=== PATIENT | male | born 1970 | race African-American/Black ===

== ENCOUNTER 2016-06-19 01:12 | Emergency (ER) | payer MEDICAID ==
[~2016-06-19] VITALS: Ht 185.4 cm; Wt 72.0 kg
[~2016-06-19 01:12] MED LIST: BUPR-197 PO; LORA1TAB PO
[2016-06-19 01:15] VITALS: BP 128/73; PULSE 85; RESP 17; TEMP 98.2; O2SAT 93
[2016-06-19 01:21] VITALS: RESP 21; O2SAT 96
[2016-06-19] MEDS ORDERED: SODIUM CHLORIDE 0.9% FLUSH 10 ML FLUSH IVF PRN (01:30)
[2016-06-19] MEDS ORDERED: IBUPROFEN 800 MG TAB PO ONE (01:30)
--- NOTE | 2016-06-19 01:30 | PD ---
HPI Chief Complaint: Chest Pain Time Seen by Provider: 01:19 Travel History International Travel<30 days: No Contact w/Intl Traveler<30days: No Traveled to known affect area: No History of Present Illness HPI Patient is a 46-year-old male presents emergency department with complaint of chest pain. Patient states that he was at home approximately 30 minutes arrival when he developed a sharp right sided chest pain. This is reproducible and made worse with movement. Patient denies any associated shortness of breath , nausea, diaphoresis or lightheadedness. Patient does not have any history of cardiac disease, PE or risk factors. EMS arrived, hemodynamically stable with normal twelve-lead en route. PFSH Past Medical History Bipolar Disorder: Yes Anxiety: Yes Depression: Yes Congestive Heart Failure: Yes Diminished Hearing: No Psychiatric: Yes (PSYCHOSIS) Tetanus Vaccination: < 5 Years Past Surgical History Surgical History: No Previous Surgery Social History Alcohol Use: Yes (3-4 TIMES PER WEEK) Tobacco Use: Yes (2 PPD) Substance Use: No (THC OCCASIONALLY) Allergies-Medications (Allergen,Severity, Reaction): Coded Allergies: Compazine (Verified Allergy, Severe, 06/19/16) Toradol (Verified Allergy, Severe, 06/19/16) Zofran (Verified Allergy, Severe, 06/19/16) Flexeril (Verified Allergy, Unknown, HIVES, 06/19/16) Tramadol (Verified Allergy, Unknown, HIVES, 06/19/16) Reported Meds & Prescriptions Reported Meds & Active Scripts Active No Active Prescriptions or Reported Medications Review of Systems Except as stated in HPI: all other systems reviewed are Neg Physical Exam Narrative GENERAL: Well-appearing male in no acute distress SKIN: Focused skin assessment warm/dry. HEAD: Normocephalic. EYES: No scleral icterus. No injection or drainage. ENT: No nasal bleeding or discharge. Mucous membranes pink and moist. NECK: Supple CARDIOVASCULAR: Regular rate and rhythm. No murmur appreciated. Reproducible point tenderness to palpation of the right chest wall RESPIRATORY: No accessory muscle use. Clear to auscultation. Breath sounds equal bilaterally. GASTROINTESTINAL: Abdomen soft, non-tender, nondistended. MUSCULOSKELETAL: No obvious deformities No edema. NEUROLOGICAL: Awake and alert. Normal speech. PSYCHIATRIC: Appropriate mood and affect; insight and judgment normal. Data Data Last Documented VS Vital Signs Date Time Temp Pulse Resp B/P Pulse Ox O2 Delivery O2 Flow Rate FiO2 06/19/16 01:21 21 96 Room Air 06/19/16 01:15 98.2 85 128/73 Orders Complete Blood Count With Diff (06/19/16 01:19) Basic Metabolic Panel (Bmp) (06/19/16 01:19) D-Dimer (06/19/16 01:19) Troponin I (06/19/16 01:19) Iv Access Insert/Monitor (06/19/16 01:19) Electrocardiogram (06/19/16 01:19) Ecg Monitoring (06/19/16 01:19) Oximetry (06/19/16 01:19) Sodium Chloride 0.9% Flush (Ns Flush) (06/19/16 01:30) Ibuprofen (Motrin) (06/19/16 01:30) Ct Pulmonary Angiogram (06/19/16 02:19) Iohexol 350 Inj (Omnipaque 350 Inj) (06/19/16 02:38) Labs Laboratory Tests Test 06/19/16 01:25 White Blood Count 8.9 TH/MM3 Red Blood Count 4.74 MIL/MM3 Hemoglobin 14.9 GM/DL Hematocrit 43.6 % Mean Corpuscular Volume 92.1 FL Mean Corpuscular Hemoglobin 31.4 PG Mean Corpuscular Hemoglobin 34.1 % Concent Red Cell Distribution Width 13.5 % Platelet Count 201 TH/MM3 Mean Platelet Volume 9.4 FL Neutrophils (%) (Auto) 62.9 % Lymphocytes (%) (Auto) 25.9 % Monocytes (%) (Auto) 9.0 % Eosinophils (%) (Auto) 1.4 % Basophils (%) (Auto) 0.8 % Neutrophils # (Auto) 5.6 TH/MM3 Lymphocytes # (Auto) 2.3 TH/MM3 Monocytes # (Auto) 0.8 TH/MM3 Eosinophils # (Auto) 0.1 TH/MM3 Basophils # (Auto) 0.1 TH/MM3 CBC Comment DIFF FINAL Differential Comment D-Dimer Quantitative (PE/DVT) 0.60 MG/L FEU Sodium Level 139 MEQ/L Potassium Level 3.7 MEQ/L Chloride Level 103 MEQ/L Carbon Dioxide Level 26.2 MEQ/L Anion Gap 10 MEQ/L Blood Urea Nitrogen 9 MG/DL Creatinine 0.84 MG/DL Estimat Glomerular Filtration 120 ML/MIN Rate Random Glucose 88 MG/DL Calcium Level 9.0 MG/DL Troponin I LESS THAN 0.02 NG/ML MDM Medical Decision Making Medical Screen Exam Complete: Yes Emergency Medical Condition: Yes Medical Record Reviewed: Yes Differential Diagnosis 46-year-old male here with complaint of chest pain. Exam shows reproducible point tenderness to palpation of the right chest wall. He describes the symptoms as sharp. Suspicion that these are musculoskeletal in etiology. Less likely PE, ACS. Narrative Course Patient placed on monitor, IV established and blood obtained. Twelve-lead EKG shows sinus rhythm without notable ST abnormalities, normal intervals. Patient given ibuprofen for pain. CBC, BMP, d-dimer, troponin notable for slightly elevated d-dimer and therefore CT pulmonary angiogram was obtained. No evidence of PE. Mild groundglass attenuation left lower lobe, nonspecific. Patient doesn't have any infectious symptomatology and this is on the contralateral side of his pain. Emphysema with stable pulmonary nodules. Patient was reassured, discharged home with musculoskeletal etiology. Diagnosis Primary Impression: Chest wall pain Referrals: Primary Care Physician as needed Patient Instructions: Chest Wall Pain (ED), General Instructions Additional Instructions: Tylenol, ibuprofen as needed for chest wall pain. EKG blood work and CAT scan today were unremarkable. Med/Other Pt SpecificInfo: No Change to Meds Scripts No Active Prescriptions or Reported Meds Disposition: DISCHARGE HOME Condition: Stable Lisa Manrique MD Jun 19, 2016 01:30
[2016-06-19 01:49] LABS: AUTOMATED NEUTROPHIL # 5.6 TH/MM3 (1.8-7.7); BASOPHIL # 0.1 TH/MM3 (0-0.2); BASOPHIL % 0.8 % (0.0-2.0); EOSINOPHIL # 0.1 TH/MM3 (0-0.4); EOSINOPHIL % 1.4 % (0.0-4.0); HEMATOCRIT 43.6 % (39.0-51.0); HEMO FLAGS DIFF FINAL; LYMPH % 25.9 % (9.0-44.0); LYMPHOCYTE # 2.3 TH/MM3 (1.0-4.8); MEAN CELL VOLUME 92.1 FL (80.0-100.0); MEAN CORPUSCULAR HEMOGLOBIN 31.4 PG (27.0-34.0); MEAN CORPUSCULAR HGB CONC 34.1 % (32.0-36.0); NEUT % 62.9 % (16.0-70.0); PLATELET COUNT 201 TH/MM3 (150-450); RED BLOOD COUNT 4.74 MIL/MM3 (4.50-5.90); RED CELL DISTRIBUTION WIDTH 13.5 % (11.6-17.2); WHITE BLOOD COUNT 8.9 TH/MM3 (4.0-11.0)
[2016-06-19 02:20] LABS: ANION GAP 10 MEQ/L (5-15); BICARBONATE 26.2 MEQ/L (21.0-32.0); BLOOD UREA NITROGEN 9 MG/DL (7-18); CHLORIDE 103 MEQ/L (98-107); GLOMERULAR FILTRATION RATE 120 ML/MIN (>89); POTASSIUM 3.7 MEQ/L (3.5-5.1); SODIUM (NA) 139 MEQ/L (136-145)
[2016-06-19] MEDS ORDERED: IOHEXOL 350 MG/ML 10 ML VIAL (for RAD DIAG) IV ONE (02:38)
--- NOTE | 2016-06-19 03:01 | RADRPT ---
EXAM DATE/TIME: 06/19/2016 02:28 [facility] COMPARISON: CT THORAX W/O CONTRAST, June 26, 2009, 13:15. INDICATIONS : Medial chest pain. IV CONTRAST: 85 cc Omnipaque 350 (iohexol) IV RADIATION DOSE: 6.79 CTDIvol (mGy) MEDICAL HISTORY : Congestive heart failure. SURGICAL HISTORY : None. ENCOUNTER: Initial ACUITY: 1 day PAIN SCALE: 8/10 LOCATION: chest TECHNIQUE: Volumetric scanning of the chest was performed using a pulmonary embolism protocol MIP images were re constructed. Using automated exposure control and adjustment of the mA and/or kV according to patien t size, radiation dose was kept as low as reasonably achievable to obtain optimal diagnostic quality images. FINDINGS: PULMONARY ARTERIES: No filling defects are seen in the pulmonary arteries through the segmental level. LUNGS: There is no consolidation or pneumothorax . There is a stable 6 mm left lower lobe and 4 mm left uppe r lobe noncalcified pulmonary nodule. Mild dependent atelectasis is present bilaterally and there is mild groundglass attenuation in the left lower lobe. Paraseptal emphysema is present in both upper lo bes. PLEURAE: There is no pleural thickening or pleural effusion. MEDIASTINUM: There is good visualization of the great vessels of the middle mediastinum. No evidence of mediastin al or hilar adenopathy/mass. MUSCULOSKELETAL: No acute osseous abnormality is identified. MISCELLANEOUS: The visualized upper abdominal organs demonstrate no acute abnormality. CONCLUSION: 1. No PE is identified. 2. Mild groundglass attenuation in the left lower lobe. Although nonspecific this could represent an infectious or inflammatory process. 3. There is paraseptal emphysema with stable left upper lobe and left lower lobe pulmonary nodules. T he stability since 2009 is consistent with a benign process. Krishna Freitas MD on June 19, 2016 at 2:55 Board Certified Radiologist. This report was verified electronically.
[2016-06-19 03:43] VITALS: BP 128/78; PULSE 82; RESP 22; O2SAT 98
--- NOTE | 2016-06-19 21:00 | EKG ---
Date Performed: 06/19/2016 Time Performed: 01:24:43 PTAGE: 46 years EKG: Sinus rhythm NORMAL ECG PREVIOUS TRACING : 04/06/2015 21.57 DOCTOR: Susana Schultz Interpretating Date/Time 06/19/2016 20:59:54
== END 2016-06-19 03:44 | disposition home or self-care (01) ==
LOC: NEPE 01:12
DX: R07.89 Other chest pain (principal); I50.9 Heart failure, unspecified
CPT/HCPCS: 71275; 80048; 84484; 85025; 85379; 93005; 99285; Q9967

== ENCOUNTER 2016-07-03 04:08 | Emergency (ER) | payer MEDICAID ==
[~2016-07-03] VITALS: Ht 185.4 cm; Wt 87.0 kg
[2016-07-03 04:14] VITALS: BP 107/51; PULSE 84; RESP 18; TEMP 97.8
[2016-07-03] MEDS ORDERED: LORA1TAB12 PO (04:21)
[2016-07-03] MEDS ORDERED: LAMO100 PO (04:21)
[2016-07-03] MEDS ORDERED: TRAZ100T4 PO (04:21)
--- NOTE | 2016-07-03 04:27 | PD ---
HPI Chief Complaint: Chest Pain Time Seen by Provider: 04:17 Travel History International Travel<30 days: No Contact w/Intl Traveler<30days: No Traveled to known affect area: No History of Present Illness HPI 46-year-old male here for evaluation of chest pain. The patient reports that he was seen in the emergency department about 2 weeks ago for the same, and he has been having chest pain ever since. The pain worsened this evening. He describes the pain as sharp, gross from his right side of his chest to his left side of his chest. Pain can be slightly worse with movement and inspiration. He denies dyspnea. No history of cardiac disease. Chart review shows that the patient was here on June 19 and had a full workup in the emergency department including negative set of cardiac enzymes as well as a negative CT pulmonary angiogram. Pain was thought to be musculoskeletal. Patient denies fevers, chills, cough, recent illness. No paresthesias or motor deficits. He admits to drinking alcohol daily including beer and moonshine as well as smoking cigarettes daily. He denies crack or cocaine use. PFSH Past Medical History Bipolar Disorder: Yes Anxiety: Yes Depression: Yes Congestive Heart Failure: Yes Diminished Hearing: No Psychiatric: Yes (PSYCHOSIS) Past Surgical History Surgical History: No Previous Surgery Social History Alcohol Use: Yes (3-4 TIMES PER WEEK) Tobacco Use: Yes (2 PPD) Substance Use: No (THC OCCASIONALLY) Allergies-Medications (Allergen,Severity, Reaction): Coded Allergies: Compazine (Verified Allergy, Severe, 06/19/16) Toradol (Verified Allergy, Severe, 06/19/16) Zofran (Verified Allergy, Severe, 06/19/16) Flexeril (Verified Allergy, Unknown, HIVES, 06/19/16) Tramadol (Verified Allergy, Unknown, HIVES, 06/19/16) Reported Meds & Prescriptions Reported Meds & Active Scripts Active Reported Lorazepam 1 Mg Tab 1 Mg PO DAILY PRN Lamictal (Lamotrigine) 100 Mg Tab 100 Mg PO BID Trazodone (Trazodone HCl) 100 Mg Tab 100 Mg PO HS Review of Systems Except as stated in HPI: all other systems reviewed are Neg Physical Exam Narrative GENERAL: Well-developed, well-nourished, comfortable, no acute distress. SKIN: Focused skin assessment warm/dry. HEAD: Atraumatic. Normocephalic. EYES: Pupils equal and round. No scleral icterus. No injection or drainage. ENT: No nasal bleeding or discharge. Mucous membranes pink and moist. NECK: Trachea midline. No JVD. CARDIOVASCULAR: Regular rate and rhythm. Distal pulses brisk and equal bilaterally. RESPIRATORY: No accessory muscle use. Clear to auscultation. Breath sounds equal bilaterally. GASTROINTESTINAL: Abdomen soft, non-tender, nondistended. MUSCULOSKELETAL: No obvious deformities. No clubbing. No cyanosis. No edema. NEUROLOGICAL: Awake and alert. No obvious cranial nerve deficits. Motor grossly within normal limits. Normal speech. PSYCHIATRIC: Appropriate mood and affect; insight and judgment normal. Data Data Last Documented VS Vital Signs Date Time Temp Pulse Resp B/P Pulse Ox O2 Delivery O2 Flow Rate FiO2 07/03/16 04:30 18 97 Room Air 07/03/16 04:14 97.8 84 107/51 Orders Electrocardiogram (07/03/16 04:23) Basic Metabolic Panel (Bmp) (07/03/16 04:23) Ckmb (Isoenzyme) Profile (07/03/16 04:23) Complete Blood Count With Diff (07/03/16 04:23) Magnesium (Mg) (07/03/16 04:23) Prothrombin Time / Inr (Pt) (07/03/16 04:23) Act Partial Throm Time (Ptt) (07/03/16 04:23) Troponin I (07/03/16 04:23) Chest, Single Ap (07/03/16 04:23) Ecg Monitoring (07/03/16 04:23) Iv Access Insert/Monitor (07/03/16 04:23) Oximetry (07/03/16 04:23) Sodium Chloride 0.9% Flush (Ns Flush) (07/03/16 04:30) Alcohol (Ethanol) (07/03/16 04:23) Tramadol (Ultram) (07/03/16 04:30) Sodium Chlor 0.9% 1000 Ml Inj (Ns 1000 M (07/03/16 04:30) CKMB (07/03/16 04:25) CKMB% (07/03/16 04:25) Troponin I (07/03/16 07:00) Labs Laboratory Tests Test 07/03/16 04:25 White Blood Count 6.8 TH/MM3 Red Blood Count 4.50 MIL/MM3 Hemoglobin 14.5 GM/DL Hematocrit 41.6 % Mean Corpuscular Volume 92.3 FL Mean Corpuscular Hemoglobin 32.2 PG Mean Corpuscular Hemoglobin 34.8 % Concent Red Cell Distribution Width 13.3 % Platelet Count 203 TH/MM3 Mean Platelet Volume 9.8 FL Neutrophils (%) (Auto) 62.0 % Lymphocytes (%) (Auto) 27.1 % Monocytes (%) (Auto) 9.4 % Eosinophils (%) (Auto) 0.9 % Basophils (%) (Auto) 0.6 % Neutrophils # (Auto) 4.2 TH/MM3 Lymphocytes # (Auto) 1.9 TH/MM3 Monocytes # (Auto) 0.6 TH/MM3 Eosinophils # (Auto) 0.1 TH/MM3 Basophils # (Auto) 0.0 TH/MM3 CBC Comment DIFF FINAL Differential Comment Prothrombin Time 10.1 SEC Prothromb Time International 0.9 RATIO Ratio Activated Partial 28.5 SEC Thromboplast Time Sodium Level 141 MEQ/L Potassium Level 3.7 MEQ/L Chloride Level 106 MEQ/L Carbon Dioxide Level 24.9 MEQ/L Anion Gap 10 MEQ/L Blood Urea Nitrogen 7 MG/DL Creatinine 0.84 MG/DL Estimat Glomerular Filtration 120 ML/MIN Rate Random Glucose 91 MG/DL Calcium Level 8.9 MG/DL Magnesium Level 2.0 MG/DL Total Creatine Kinase 193 U/L Creatine Kinase MB 2.3 NG/ML Troponin I LESS THAN 0.02 NG/ML Ethyl Alcohol Level 220 MG/DL [facility] [place] Medical Decision Making Medical Screen Exam Complete: Yes Emergency Medical Condition: Yes Medical Record Reviewed: Yes Interpretation(s) EKG: Sinus, rate 86, normal axis, normal intervals, no acute ischemic abnormality. Differential Diagnosis ACS, pneumothorax, pericarditis, PE, pneumonia, musculoskeletal pain Narrative Course Vital signs show heart rate 84, blood pressure 107/51, pulse ox 97% on room air , oral temp of 97.8F. CBC is unremarkable. BMP is unremarkable. Cardiac enzymes are negative. Alcohol level is 220. Chest x-ray: No acute cardiopulmonary disease. Patient's cardiac enzymes will be repeated 3 hours after the first set. At approximately 7:00 AM at the end of my shift the patient was signed out to Dr. Manrique who will follow-up with a delta troponin and will disposition the patient. If repeat troponin is negative, the patient can be discharged home with outpatient follow-up. Marcell Baeza MD Jul 03, 2016 04:27
[2016-07-03 04:30] VITALS: RESP 18; O2SAT 97
[2016-07-03] MEDS ORDERED: SODIUM CHLORIDE 0.9% FLUSH 10 ML FLUSH IVF PRN (04:30)
[2016-07-03] MEDS ORDERED: SODIUM CHLOR 0.9% 1000 ML INJ 1,000 ML IV ONE (04:30)
[2016-07-03] MEDS ORDERED: traMADol HCL 50 MG TAB PO ONE (04:30)
[2016-07-03 04:54] LABS: AUTOMATED NEUTROPHIL # 4.2 TH/MM3 (1.8-7.7); BASOPHIL % 0.6 % (0.0-2.0); EOSINOPHIL # 0.1 TH/MM3 (0-0.4); EOSINOPHIL % 0.9 % (0.0-4.0); HEMATOCRIT 41.6 % (39.0-51.0); HEMO FLAGS DIFF FINAL; LYMPH % 27.1 % (9.0-44.0); LYMPHOCYTE # 1.9 TH/MM3 (1.0-4.8); MEAN CELL VOLUME 92.3 FL (80.0-100.0); MEAN CORPUSCULAR HEMOGLOBIN 32.2 PG (27.0-34.0); MEAN CORPUSCULAR HGB CONC 34.8 % (32.0-36.0); MONO % 9.4 % (0.0-8.0); PLATELET COUNT 203 TH/MM3 (150-450); RED CELL DISTRIBUTION WIDTH 13.3 % (11.6-17.2); WHITE BLOOD COUNT 6.8 TH/MM3 (4.0-11.0)
[2016-07-03 05:04] LABS: APTT (PATIENT) 28.5 SEC (24.3-30.1); INTERNATIONAL NORMALIZED RATIO 0.9 RATIO; PROTHROMBIN TIME - PATIENT 10.1 SEC (9.8-11.6)
[2016-07-03 05:05] LABS: ANION GAP 10 MEQ/L (5-15); BICARBONATE 24.9 MEQ/L (21.0-32.0); BLOOD UREA NITROGEN 7 MG/DL (7-18); CHLORIDE 106 MEQ/L (98-107); GLOMERULAR FILTRATION RATE 120 ML/MIN (>89); POTASSIUM 3.7 MEQ/L (3.5-5.1); SODIUM (NA) 141 MEQ/L (136-145)
[2016-07-03 05:09] LABS: CREATINE KINASE 193 U/L (39-308)
[2016-07-03 05:28] LABS: CKMB 2.3 NG/ML (0.5-3.6)
--- NOTE | 2016-07-03 06:21 | RADRPT ---
EXAM DATE/TIME: 07/03/2016 04:48 [facility] COMPARISON: CHEST SINGLE AP, April 06, 2015, 22:11. INDICATIONS : Chest pain for the last 2 weeks. MEDICAL HISTORY : None. SURGICAL HISTORY : None. ENCOUNTER: [facility] ACUITY: 2 weeks PAIN SCORE: 6/10 LOCATION: Bilateral chest FINDINGS: A single view of the chest demonstrates the lungs to be symmetrically aerated without evidence of mas s, infiltrate or effusion. The cardiomediastinal contours are unremarkable. Osseous structures are intact. CONCLUSION: 1. No acute cardiopulmonary disease. Zac Dolan MD on July 03, 2016 at 6:20 Board Certified Radiologist. This report was verified electronically.
[2016-07-03 07:10] VITALS: BP 122/74; PULSE 74; RESP 16; O2SAT 97
--- NOTE | 2016-07-03 07:51 | PD ---
Data Data Last Documented VS Vital Signs Date Time Temp Pulse Resp B/P Pulse Ox O2 Delivery O2 Flow Rate FiO2 07/03/16 07:10 74 16 122/74 97 Room Air 07/03/16 04:14 97.8 Orders Electrocardiogram (07/03/16 04:23) Basic Metabolic Panel (Bmp) (07/03/16 04:23) Ckmb (Isoenzyme) Profile (07/03/16 04:23) Complete Blood Count With Diff (07/03/16 04:23) Magnesium (Mg) (07/03/16 04:23) Prothrombin Time / Inr (Pt) (07/03/16 04:23) Act Partial Throm Time (Ptt) (07/03/16 04:23) Troponin I (07/03/16 04:23) Chest, Single Ap (07/03/16 04:23) Ecg Monitoring (07/03/16 04:23) Iv Access Insert/Monitor (07/03/16 04:23) Oximetry (07/03/16 04:23) Sodium Chloride 0.9% Flush (Ns Flush) (07/03/16 04:30) Alcohol (Ethanol) (07/03/16 04:23) Tramadol (Ultram) (07/03/16 04:30) Sodium Chlor 0.9% 1000 Ml Inj (Ns 1000 M (07/03/16 04:30) CKMB (07/03/16 04:25) CKMB% (07/03/16 04:25) Troponin I (07/03/16 07:00) Labs Laboratory Tests Test 07/03/16 07/03/16 04:25 07:10 White Blood Count 6.8 TH/MM3 Red Blood Count 4.50 MIL/MM3 Hemoglobin 14.5 GM/DL Hematocrit 41.6 % Mean Corpuscular Volume 92.3 FL Mean Corpuscular Hemoglobin 32.2 PG Mean Corpuscular Hemoglobin 34.8 % Concent Red Cell Distribution Width 13.3 % Platelet Count 203 TH/MM3 Mean Platelet Volume 9.8 FL Neutrophils (%) (Auto) 62.0 % Lymphocytes (%) (Auto) 27.1 % Monocytes (%) (Auto) 9.4 % Eosinophils (%) (Auto) 0.9 % Basophils (%) (Auto) 0.6 % Neutrophils # (Auto) 4.2 TH/MM3 Lymphocytes # (Auto) 1.9 TH/MM3 Monocytes # (Auto) 0.6 TH/MM3 Eosinophils # (Auto) 0.1 TH/MM3 Basophils # (Auto) 0.0 TH/MM3 CBC Comment DIFF FINAL Differential Comment Prothrombin Time 10.1 SEC Prothromb Time International 0.9 RATIO Ratio Activated Partial 28.5 SEC Thromboplast Time Sodium Level 141 MEQ/L Potassium Level 3.7 MEQ/L Chloride Level 106 MEQ/L Carbon Dioxide Level 24.9 MEQ/L Anion Gap 10 MEQ/L Blood Urea Nitrogen 7 MG/DL Creatinine 0.84 MG/DL Estimat Glomerular Filtration 120 ML/MIN Rate Random Glucose 91 MG/DL Calcium Level 8.9 MG/DL Magnesium Level 2.0 MG/DL Total Creatine Kinase 193 U/L Creatine Kinase MB 2.3 NG/ML Troponin I LESS THAN 0.02 LESS THAN 0.02 NG/ML NG/ML Ethyl Alcohol Level 220 MG/DL MDM Supervised Visit with SANJAY: No Narrative Course Patient signed out to me by previous provider. Please see associated no for further details. Patient is a 46-year-old male here with complaint of chest pain, seen here in the emergency department 2 weeks ago, actually by myself, for chest pain which has never since resolved but worsened slightly this evening. He continues to describe it is sharp, primarily right sided. Worse with inspiration. On his previous visit he had a CT pulmonary angiogram that was negative for PE, pain was felt to be musculoskeletal. Patient admits to drinking alcohol daily including beer, moonshine and smokes cigarettes daily. Initial twelve-lead EKG , cardiac enzymes were negative and patient signed out to me pending repeat troponin. Previous provider felt as though symptoms were atypical, likely musculoskeletal and if repeat troponin negative okay to discharge to home. Repeat troponin remains undetectable. Patient was reassured and instructed to use anti-inflammatories for chest wall pain. Patient inebriated with blood alcohol and the 200s and was encouraged to cut back on his alcohol abuse. Diagnosis Primary Impression: Atypical chest pain Additional Impression: Alcohol abuse Referrals: Primary Care Physician call for appointment [facility] for appointment Patient Instructions: General Instructions, Noncardiac Chest Pain (ED) Additional Instruction: Follow-up with your primary care provider if symptoms persist. Tylenol, ibuprofen as needed for pain. I encourage you to cut back on your drinking and seek outpatient counseling and treatment for your alcohol abuse. Med/Other Pt SpecificInfo: No Change to Meds Disposition: 01 DISCHARGE HOME Condition: Stable Lisa Manrique MD Jul 03, 2016 07:51
[2016-07-03 09:00] VITALS: BP 113/74; PULSE 84; RESP 14; O2SAT 98
--- NOTE | 2016-07-03 16:04 | EKG ---
Date Performed: 07/03/2016 Time Performed: 04:15:43 PTAGE: 46 years EKG: Sinus rhythm When compared to previous tracing, no significant change. NORMAL ECG PREVIOUS TRACING : 06/19/2016 01.24 DOCTOR: Yasir Wilkinson Interpretating Date/Time 07/03/2016 16:02:50
== END 2016-07-03 09:04 | disposition home or self-care (01) ==
LOC: NEPE 04:08
DX: R07.89 Other chest pain (principal); F10.10 Alcohol abuse, uncomplicated; Y90.7 Blood alcohol level of 200-239 mg/100 ml; I50.9 Heart failure, unspecified; F17.210 Nicotine dependence, cigarettes, uncomplicated
CPT/HCPCS: 71010; 80048; 80307; 82550; 82552; 83735; 84484; 85025; 85610; 85730; 93005; 96360; 99285; J7030

== ENCOUNTER 2017-02-15 14:39 | Emergency (ER) | payer MEDICAID ==
[~2017-02-15] VITALS: Ht 185.4 cm; Wt 74.0 kg
[~2017-02-15 14:39] MED LIST changes: -BUPR-197 PO; +LAMO100 PO; -LORA1TAB PO; +LORA1TAB12 PO; +TRAZ100T4 PO
[2017-02-15 15:04] VITALS: BP 109/59; PULSE 59; RESP 16; TEMP 98.5; O2SAT 100
--- NOTE | 2017-02-15 15:21 | PD ---
Physical Exam Time Seen by Provider: 15:19 Narrative PT WAS WALKING WHEN HE BECAME DIZZY AND FELL DID NOT STRIKE HEAD; NO LOC REPORTS MID BACK PAIN; FEELS WEAK Data Data Last Documented VS Vital Signs Date Time Temp Pulse Resp B/P (MAP) Pulse Ox O2 Delivery O2 Flow Rate FiO2 02/15/17 15:04 98.5 59 16 109/59 (76) 100 Room Air MDM Medical Record Reviewed: Yes Supervised Visit with SANJAY: No Narrative Course WORK UP INITIATED IN TRIAGE PT APPEARS WITHOUT DISTRESS Condition: Stable Claudette Collazo Feb 15, 2017 15:21
[2017-02-15] MEDS ORDERED: TRAZ100T10 PO (16:14)
[2017-02-15] MEDS ORDERED: LITH300C2 PO (16:14)
[2017-02-15 16:22] LABS: AUTOMATED NEUTROPHIL # 4.9 TH/MM3 (1.8-7.7); BASOPHIL % 0.3 % (0.0-2.0); EOSINOPHIL # 0.1 TH/MM3 (0-0.4); HEMATOCRIT 47.3 % (39.0-51.0); HEMO FLAGS DIFF FINAL; LYMPH % 24.1 % (9.0-44.0); LYMPHOCYTE # 1.8 TH/MM3 (1.0-4.8); MEAN CELL VOLUME 96.5 FL (80.0-100.0); MEAN CORPUSCULAR HEMOGLOBIN 31.8 PG (27.0-34.0); MEAN CORPUSCULAR HGB CONC 32.9 % (32.0-36.0); MONO % 9.3 % (0.0-8.0); NEUT % 65.3 % (16.0-70.0); PLATELET COUNT 204 TH/MM3 (150-450); RED CELL DISTRIBUTION WIDTH 13.5 % (11.6-17.2); WHITE BLOOD COUNT 7.6 TH/MM3 (4.0-11.0)
[2017-02-15 16:36] LABS: BICARBONATE 26.4 MEQ/L (21.0-32.0)
[2017-02-15 16:37] LABS: APTT (PATIENT) 30.2 SEC (24.3-30.1); PROTHROMBIN TIME - PATIENT 10.9 SEC (9.8-11.6)
--- NOTE | 2017-02-15 16:39 | PD ---
HPI Chief Complaint: Back/ Neck Pain or Injury Time Seen by Provider: 16:25 Travel History International Travel<30 days: No Contact w/Intl Traveler<30days: No Traveled to known affect area: No History of Present Illness HPI 46-year-old male patient presents to the ER today because he states that he had been walking and had started getting dizzy, fell hitting his back. He denies any head injury, loss of consciousness, chest pains, shortness of breath, or any other issues. He denies any other injuries. Pain is currently rated 8 out of 10. Worse with laying down on the area. Modifying Factors: Worse with laying down on the area Associated Signs & Symptoms: Dizziness, Fall, back injury Risk Factors: None PFSH Past Medical History Bipolar Disorder: Yes Anxiety: Yes Depression: Yes Congestive Heart Failure: Yes Diminished Hearing: No Psychiatric: Yes (PSYCHOSIS) Tetanus Vaccination: < 5 Years Influenza Vaccination: No Past Surgical History Surgical History: No Previous Surgery Social History Alcohol Use: Yes (3-4 TIMES PER WEEK) Tobacco Use: Yes (2 PPD) Substance Use: No (THC OCCASIONALLY) Allergies-Medications (Allergen,Severity, Reaction): Coded Allergies: ketorolac (Unverified Allergy, Severe, 02/15/17) ondansetron (Unverified Allergy, Severe, 02/15/17) prochlorperazine (Unverified Allergy, Severe, 02/15/17) cyclobenzaprine (Unverified Allergy, Unknown, HIVES, 02/15/17) tramadol (Unverified Allergy, Unknown, HIVES, 02/15/17) Reported Meds & Prescriptions Reported Meds & Active Scripts Active Reported [place] Carbonate 300 Mg Cap 300 Mg PO BID Trazodone (Trazodone HCl) 100 Mg Tablet 100 Mg PO HS Review of Systems Except as stated in HPI: all other systems reviewed are Neg Physical Exam Narrative GENERAL: Well-developed middle age after [place] male patient currently in no acute distress. Awake and oriented 3. SKIN: Focused skin assessment warm/dry. HEAD: Atraumatic. Normocephalic. EYES: Pupils equal and round. No scleral icterus. No injection or drainage. ENT: No nasal bleeding or discharge. Mucous membranes pink and moist. NECK: Trachea midline. No JVD. CARDIOVASCULAR: Regular rate and rhythm. No murmur appreciated. RESPIRATORY: No accessory muscle use. Clear to auscultation. Breath sounds equal bilaterally. GASTROINTESTINAL: Abdomen soft, non-tender, nondistended. Hepatic and splenic margins not palpable. BACK: No CVA tenderness. No rash. There is tenderness to palpation of the T12- L1 area. No obvious deformities identified. MUSCULOSKELETAL: No obvious deformities. No clubbing. No cyanosis. No edema. NEUROLOGICAL: Awake and alert. No obvious cranial nerve deficits. Motor grossly within normal limits. Normal speech. PSYCHIATRIC: Appropriate mood and affect; insight and judgment normal. Data Data Last Documented VS Vital Signs Date Time Temp Pulse Resp B/P (MAP) Pulse Ox O2 Delivery O2 Flow Rate FiO2 02/15/17 15:04 98.5 59 16 109/59 (76) 100 Room Air Orders Orders Electrocardiogram (02/15/17 15:21) Basic Metabolic Panel (Bmp) (02/15/17 15:21) Complete Blood Count With Diff (02/15/17 15:21) Act Partial Throm Time (Ptt) (02/15/17 15:21) Prothrombin Time / Inr (Pt) (02/15/17 15:21) Urinalysis - C+S If Indicated (02/15/17 15:21) Spine, Thoracic-Ap/Lat/Sw(3vw) (02/15/17 ) Labs Laboratory Tests Test 02/15/17 15:30 White Blood Count 7.6 TH/MM3 Red Blood Count 4.90 MIL/MM3 Hemoglobin 15.6 GM/DL Hematocrit 47.3 % Mean Corpuscular Volume 96.5 FL Mean Corpuscular Hemoglobin 31.8 PG Mean Corpuscular Hemoglobin Concent 32.9 % Red Cell Distribution Width 13.5 % Platelet Count 204 TH/MM3 Mean Platelet Volume 10.1 FL Neutrophils (%) (Auto) 65.3 % Lymphocytes (%) (Auto) 24.1 % Monocytes (%) (Auto) 9.3 % Eosinophils (%) (Auto) 1.0 % Basophils (%) (Auto) 0.3 % Neutrophils # (Auto) 4.9 TH/MM3 Lymphocytes # (Auto) 1.8 TH/MM3 Monocytes # (Auto) 0.7 TH/MM3 Eosinophils # (Auto) 0.1 TH/MM3 Basophils # (Auto) 0.0 TH/MM3 CBC Comment DIFF FINAL Differential Comment Prothrombin Time 10.9 SEC Prothromb Time International Ratio 1.0 RATIO Activated Partial Thromboplast Time 30.2 SEC Blood Urea Nitrogen 9 MG/DL Creatinine 0.89 MG/DL Random Glucose 78 MG/DL Calcium Level 9.0 MG/DL Sodium Level 139 MEQ/L Potassium Level 4.0 MEQ/L Chloride Level 106 MEQ/L Carbon Dioxide Level 26.4 MEQ/L Anion Gap 7 MEQ/L Estimat Glomerular Filtration Rate 113 ML/MIN MDM Medical Decision Making Medical Screen Exam Complete: Yes Emergency Medical Condition: Yes Medical Record Reviewed: Yes Interpretation(s) EKG shows sinus bradycardia rate 52 bpm. No signs of acute ST-T changes or QT prolongation. Laboratory Tests Test 02/15/17 15:30 Monocytes (%) (Auto) 9.3 % (0.0-8.0) Activated Partial Thromboplast Time 30.2 SEC (24.3-30.1) Differential Diagnosis Syncope versus fall, contusion versus fracture Narrative Course Patient has no focal neurological deficits and is fairly asymptomatic currently. Vital signs are stable in the ER. Lab work did not indicate significant metabolic issues or signs of dehydration. X-rays been ordered and pending. Physician Communication Physician Communication Case is signed out to Dr. Flores at 5 PM pending rest of the lab work and x-ray. Diagnosis Primary Impression: Dizziness Additional Impression: Fall Condition: Stable Jessica Bennett MD Feb 15, 2017 16:39
--- NOTE | 2017-02-15 17:14 | RADRPT ---
EXAM DATE/TIME: 02/15/2017 15:41 [facility] COMPARISON: No previous studies available for comparison. INDICATIONS : Back pain post fall today. MEDICAL HISTORY : None. SURGICAL HISTORY : None. ENCOUNTER: Initial ACUITY: 1 day PAIN SCORE: 8/10 LOCATION: thoracic spine. FINDINGS: There is normal alignment of the thoracic vertebral bodies. Vertebral body height is maintained. No evidence of fracture or subluxation. Pedicles are intact at all levels. The paravertebral reflecti ons are not thickened. CONCLUSION: Negative for compression fracture. MRI would be more sensitive for such. Ismael Trevizo MD FACR on February 15, 2017 at 17:12 Board Certified Radiologist. This report was verified electronically.
[2017-02-15 17:30] VITALS: BP 132/77; PULSE 80; RESP 18; O2SAT 98
[2017-02-15 18:04] LABS: BLOOD, URINE NEG (NEG); COMMENT (UR) CULTURE INDICATED; CULTURE IF INDICATED CULTURE INDICATED; GLUCOSE,URINE NEG (NEG); KETONE, URINE NEG (NEG); MUCUS URINE FEW /lpf (OCC); NITRITE,URINE NEG (NEG); PH, URINE 6.5 (5.0-8.5); SQUAMOUS EPITHELIAL CELL URINE 5 /hpf (0-5); URINE COLOR YELLOW (YELLW/STRAW)
[2017-02-15] MEDS ORDERED: TYLE325T PO (18:28)
[2017-02-15] MEDS ORDERED: BACT800T5 PO (18:28)
--- NOTE | 2017-02-15 18:29 | PD ---
Physical Exam Narrative Received sign out to follow up with [facility]. Please see previous provider's note for details. 46yo M here with right lower back pain. Pt said he is not dizzy anymore and ambulating in the ED without any complaints. Denies any IVDA, fever, nausea, vomiting, abdominal pain, focal weakness or numbness. Labs reviewed, no leukocytosis. BMP unremarkable. UA showed moderate leukocyte. WBC 12, culture indicated. Xray TS showed no compression fracture. Pt has no midline ttp on my exam now. Return precautions given. Data Data Last Documented VS Vital Signs Date Time Temp Pulse Resp B/P (MAP) Pulse Ox O2 Delivery O2 Flow Rate FiO2 02/15/17 15:04 98.5 59 16 109/59 (76) 100 Room Air Orders Orders Electrocardiogram (02/15/17 15:21) Basic Metabolic Panel (Bmp) (02/15/17 15:21) Complete Blood Count With Diff (02/15/17 15:21) Act Partial Throm Time (Ptt) (02/15/17 15:21) Prothrombin Time / Inr (Pt) (02/15/17 15:21) Urinalysis - C+S If Indicated (02/15/17 15:21) Spine, Thoracic-Ap/Lat/Sw(3vw) (02/15/17 ) Urine Culture (02/15/17 17:33) Labs Laboratory Tests Test 02/15/17 15:30 02/15/17 17:33 White Blood Count 7.6 TH/MM3 Red Blood Count 4.90 MIL/MM3 Hemoglobin 15.6 GM/DL Hematocrit 47.3 % Mean Corpuscular Volume 96.5 FL Mean Corpuscular Hemoglobin 31.8 PG Mean Corpuscular Hemoglobin Concent 32.9 % Red Cell Distribution Width 13.5 % Platelet Count 204 TH/MM3 Mean Platelet Volume 10.1 FL Neutrophils (%) (Auto) 65.3 % Lymphocytes (%) (Auto) 24.1 % Monocytes (%) (Auto) 9.3 % Eosinophils (%) (Auto) 1.0 % Basophils (%) (Auto) 0.3 % Neutrophils # (Auto) 4.9 TH/MM3 Lymphocytes # (Auto) 1.8 TH/MM3 Monocytes # (Auto) 0.7 TH/MM3 Eosinophils # (Auto) 0.1 TH/MM3 Basophils # (Auto) 0.0 TH/MM3 CBC Comment DIFF FINAL Differential Comment Prothrombin Time 10.9 SEC Prothromb Time International Ratio 1.0 RATIO Activated Partial Thromboplast Time 30.2 SEC Blood Urea Nitrogen 9 MG/DL Creatinine 0.89 MG/DL Random Glucose 78 MG/DL Calcium Level 9.0 MG/DL Sodium Level 139 MEQ/L Potassium Level 4.0 MEQ/L Chloride Level 106 MEQ/L Carbon Dioxide Level 26.4 MEQ/L Anion Gap 7 MEQ/L Estimat Glomerular Filtration Rate 113 ML/MIN Urine Color YELLOW Urine Turbidity HAZY Urine pH 6.5 Urine Specific [place] 1.026 Urine Protein TRACE mg/dL Urine Glucose (UA) NEG mg/dL Urine Ketones NEG mg/dL Urine Occult Blood NEG Urine Nitrite NEG Urine Bilirubin NEG Urine Urobilinogen LESS THAN 2.0 MG/DL Urine Leukocyte Esterase MOD Urine RBC 3 /hpf Urine WBC 12 /hpf Urine Squamous Epithelial Cells 5 /hpf Urine Amorphous Sediment RARE Urine Mucus FEW /lpf Microscopic Urinalysis Comment CULTURE INDICATED MDM Supervised Visit with SANJAY: No Diagnosis Primary Impression: Dizziness Additional Impressions: Fall Qualified Codes: W19.XXXA - Unspecified fall, initial encounter UTI (urinary tract infection) Qualified Codes: N39.0 - Urinary tract infection, site not specified Patient Instructions: General Instructions Departure Forms: Tests/Procedures Additional Instruction: Please follow up with your primary care physician in 3-7 days. Return tot he ED if symptoms worsen. Med/Other Pt SpecificInfo: Prescription(s) given Scripts Sulfamethoxazole-Trimethoprim (Bactrim DS) 800-160 Mg Tab 1 TAB PO BID for Infection, #20 TAB 0 Refills Prov: Evita Flores DO 02/15/17 Acetaminophen (Tylenol) 325 Mg Tab 650 MG PO Q6H Y for PAIN SCALE 1 TO 4, #20 TAB 0 Refills Prov: Evita Flores DO 02/15/17 Disposition: 01 DISCHARGE HOME Condition: Stable FloresEvita DO Feb 15, 2017 18:29
--- NOTE | 2017-02-16 16:03 | EKG ---
Date Performed: 02/15/2017 Time Performed: 15:37:34 PTAGE: 46 years EKG: SINUS BRADYCARDIA POSSIBLE INFERIOR MYOCARDIAL INFARCTION ABNORMAL ECG Since PREVIOUS TRACING , no significant change noted PREVIOUS TRACIN07/03/2016 04.15 DOCTOR: Sonya Leung Interpretating Date/Time 02/16/2017 16:01:30
== END 2017-02-15 18:51 | disposition home or self-care (01) ==
LOC: NEPD 14:39
DX: R42 Dizziness and giddiness (principal); M54.5 Low back pain; R00.1 Bradycardia, unspecified; F31.9 Bipolar disorder, unspecified; R94.31 Abnormal electrocardiogram [ECG] [EKG]; F41.9 Anxiety disorder, unspecified; I50.9 Heart failure, unspecified; F17.200 Nicotine dependence, unspecified, uncomplicated; Z79.899 Other long term (current) drug therapy
CPT/HCPCS: 72072; 80048; 81001; 85025; 85610; 85730; 87086; 93005; 99285